=== PATIENT | female | born 1965 | race Caucasian/White ===

== ENCOUNTER 2019-10-29 13:27 | Emergency (ER) | payer BC ==
[~2019-10-29] VITALS: Ht 162.6 cm; Wt 73.6 kg
[~2019-10-29 13:27] MED LIST: CYCL-331 PO; DIPH25CA58 PO; RIZA10TA PO; TOPI25TA7 PO
[2019-10-29 13:38] VITALS: BP 130/77
[2019-10-29] MEDS ORDERED: diphenhydrAMINE HCL 25 MG CAPSULE PO ONE (14:30)
[2019-10-29] MEDS ORDERED: DEXAMETHASONE SOD PHOS 10 MG/ML VIAL. IV ONE (14:30)
[2019-10-29] MEDS ORDERED: PROCHLORPERAZINE 10 MG/2 ML VIAL. IV ONE (14:30)
--- NOTE | 2019-10-29 14:40 | RAD ---
CT HEAD WO CONTRAST Clinical indications: New onset headache COMPARISON: None available. Technique: Noncontrast axial cross sectional scanning of the head was performed. PQRS compliance Statement One or more of the following individualized dose reduction techniques were utilized for this study: 1. Automated exposure control 2. Adjustment of the mA and/or kV according to patient size 3. Use of iterative reconstruction technique Findings: No acute intracranial hemorrhage or midline shift or mass-effect or hydrocephalus or extra-axial fluid collection is seen. No focal hypodense area or sulci effacement is seen to indicate an acute infarct or edema radiographically. No skull fracture or pneumocephalus is seen. No opacification of the mastoid sinuses or the middle ear cavities or the paranasal sinuses is seen. The paranasal sinuses are not completely seen in this study. Impression: No acute intracranial abnormality is seen. Electronically signed by: Sekou Patton MD (10/29/2019 2:37 PM) [id number]
--- NOTE | 2019-10-29 15:30 | PHYS DOC ---
Past History Past Medical History: Hypothyroid, Migraines Past Surgical History: Hysterectomy, Tonsillectomy Alcohol Use: Rarely Drug Use: None Adult General Chief Complaint Chief Complaint: HEADACHE HPI HPI Patient is a [age] year old [sex] who presents with [] Review of Systems Review of Systems Constitutional: Denies fever or chills [] Eyes: Denies change in visual acuity, redness, or eye pain [] HENT: Denies nasal congestion or sore throat [] Respiratory: Denies cough or shortness of breath [] Cardiovascular: No additional information not addressed in HPI [] GI: Denies abdominal pain, nausea, vomiting, bloody stools or diarrhea [] : Denies dysuria or hematuria [] Musculoskeletal: Denies back pain or joint pain [] Integument: Denies rash or skin lesions [] Neurologic: Denies headache, focal weakness or sensory changes [] Endocrine: Denies polyuria or polydipsia [] All other systems were reviewed and found to be within normal limits, except as documented in this note. Current Medications Current Medications Current Medications Medications (Trade) Dose Ordered Sig/Carola Start Time Stop Time Status Last Admin Dose Admin Dexamethasone Sodium Phosphate (Decadron) 10 mg 1X ONCE 10/29/19 14:30 10/29/19 14:31 DC 10/29/19 15:05 10 MG Diphenhydramine HCl (Benadryl) 25 mg 1X ONCE 10/29/19 14:30 10/29/19 14:31 DC 10/29/19 15:04 25 MG Prochlorperazine Edisylate (Compazine) 10 mg 1X ONCE 10/29/19 14:30 10/29/19 14:31 DC 10/29/19 15:04 10 MG Allergies Allergies Allergies Coded Allergies Type Severity Reaction Last Updated Verified Penicillins Allergy Unknown 03/26/16 Yes Sulfa (Sulfonamide Antibiotics) Allergy Unknown 03/26/16 Yes morphine Allergy Unknown 03/26/16 Yes Physical Exam Physical Exam Constitutional: Well developed, well nourished, no acute distress, non-toxic appearance. [] HENT: Normocephalic, atraumatic, bilateral external ears normal, oropharynx alfred[address], no oral exudates, nose normal. [] Eyes: PERRLA, EOMI, conjunctiva normal, no discharge. [] Neck: Normal range of motion, no tenderness, supple, no stridor. [] Cardiovascular:Heart rate regular rhythm, no murmur [] Lungs & Thorax: Bilateral breath sounds clear to auscultation [] Abdomen: Bowel sounds normal, soft, no tenderness, no masses, no pulsatile masses. [] Skin: Warm, dry, no erythema, no rash. [] Back: No tenderness, no CVA tenderness. [] Extremities: No tenderness, no cyanosis, no clubbing, ROM intact, no edema. [] Neurologic: Alert and oriented X 3, normal motor function, normal sensory function, no focal deficits noted. [] Psychologic: Affect normal, judgement normal, mood normal. [] Current Patient Data Vital Signs Vital Signs Date Time Temp Pulse Resp B/P (MAP) Pulse Ox O2 Delivery O2 Flow Rate FiO2 10/29/19 13:38 98.1 62 18 130/77 (94) 97 EKG EKG [] Radiology/Procedures Radiology/Procedures [] Course & Med Decision Making Course & Med Decision Making Pertinent Labs and Imaging studies reviewed. (See chart for details) [] Dragon Disclaimer Dragon Disclaimer This electronic medical record was generated, in whole or in part, using a voice recognition dictation system. Departure Departure: Impression: Primary Impression: Migraine headache Disposition: HOME/RESIDENCE PRIOR TO ADM Condition: STABLE Referrals: MANI HUBBARD MD (PCP) Patient Instructions: Eye - Blurred Vision, Migraine Headache Justification of Admission: Justification of Admission: Justification of Admission Dx: MARINA Beaulieu MD Oct 29, 2019 15:30
== END 2019-10-29 15:47 | disposition home or self-care (01) ==
LOC: ER 13:27
DX: G43.909 Migraine, unspecified, not intractable, without status migrainosus (principal); E03.9 Hypothyroidism, unspecified; Z88.0 Allergy status to penicillin; Z88.2 Allergy status to sulfonamides; Z88.5 Allergy status to narcotic agent
CPT/HCPCS: 70450; 96374; 96375; 99284; J0780; J1100; Q0163; 99291-25